=== PATIENT | female | born 1950 | race American Indian/Alaskan Native ===

== ENCOUNTER 2016-11-15 18:01 | Emergency (ER) | payer OTHER ==
[2016-11-15 18:16] VITALS: TEMP 98.3
[2016-11-15 19:00] VITALS: PULSE 72
[2016-11-15] MEDS ORDERED: Lidocaine 5% Patch TD STA (19:22)
[2016-11-15] MEDS ORDERED: Lidocaine 5% Patch TD ONE (19:29)
--- NOTE | 2016-11-15 19:40 | C.PDOC ---
History Of Present Illness 65 year old female who presents to the ER with a complaint of lower back pain radiating to the right leg. Patient reports she has pain with ambulation; she took aleve with minimum relief to pain. Reports history of similar back pain in the past. Denies heavy lifting, recent injury, weakness, numbness, or urinary symptoms. Time Seen by Provider: 11/15/16 19:16 Chief Complaint (Nursing): Back Pain History Per: Patient History/Exam Limitations: no limitations Onset/Duration Of Symptoms: Days Current Symptoms Are (Timing): Still Present Quality Of Discomfort: Unable To Describe Previous Symptoms: None Associated Symptoms: None Exacerbating Factor(s): Other (Walking) Recent travel outside of the [place]: No Past Medical History Reviewed: Historical Data, Nursing Documentation, Vital Signs Vital Signs: Last Vital Signs Temp 98.3 F 11/15/16 18:13 Pulse 72 11/15/16 20:41 Resp 20 11/15/16 21:35 BP 157/111 H 11/15/16 21:35 Pulse Ox 97 11/15/16 21:09 - Medical History PMH: HTN Surgical History: No Surg Hx Family History: States: Unknown Family Hx - Social History Hx Alcohol Use: No Hx Substance Use: No - Immunization History Hx Tetanus Toxoid Vaccination: Yes Hx Influenza Vaccination: Yes (10/2015) Hx Pneumococcal Vaccination: No Review Of Systems Constitutional: Negative for: Fever, Malaise ENT: Negative for: Ear Pain Cardiovascular: Negative for: Chest Pain, Palpitations Respiratory: Negative for: Cough, Shortness of Breath Gastrointestinal: Negative for: Vomiting, Abdominal Pain, Diarrhea Genitourinary: Negative for: Dysuria, Incontinence, Hematuria Musculoskeletal: Positive for: Back Pain, Leg Pain Neurological: Negative for: Weakness, Numbness, Headache, Dizziness Physical Exam - Physical Exam Appears: Non-toxic, No Acute Distress Skin: Normal Color, Warm, Dry Head: Atraumatic, Normacephalic Eye(s): bilateral: Normal Inspection, EOMI Oral Mucosa: Moist Neck: Normal ROM Chest: Symmetrical Cardiovascular: Rhythm Regular, No Murmur Respiratory: Normal Breath Sounds, No Wheezing Gastrointestinal/Abdominal: Soft, No Tenderness Back: No Vertebral Tenderness, No Decreased ROM, Paraspinal Tenderness (Lumbar) Extremity: Normal ROM (x4), No Tenderness, No Deformity, No Swelling Neurological/Psych: Oriented x3, Normal Speech Gait: Steady ED Course And Treatment O2 Sat by Pulse Oximetry: 97 (Room air) Pulse Ox Interpretation: Normal Medical Decision Making Medical Decision Making: Impression: low back pain Plan: * Toradol * lidoderm * Valium Progress: Patient found to be hypertensive, reports ran out of her meds few days ago. HCTZ PO was ordred. On re-evaluation patient reports pain has much improved. She is ambulatory without signs of discomfort. No numbness, no weakness, no incontinence. Patient is stable for discharge Disposition Counseled Patient/Family Regarding: Diagnosis, Need For Followup, Rx Given - Disposition Disposition: HOME/ ROUTINE Disposition Time: 21:07 Condition: IMPROVED Additional Instructions: Please take pain medications as needed for back pain Follow up with your primary doctor or clinic for further care and to address your hypertension We have provided refill of your medication, please take daily Prescriptions: Cyclobenzaprine [Cyclobenzaprine HCl] 10 mg PO TID #21 tab Hydrochlorothiazide [Microzide] 25 mg PO DAILY #30 cap Naproxen [Naprosyn] 1 tab PO BID PRN #25 tab PRN Reason: Pain Instructions: Chronic Hypertension (ED), Acute Low Back Pain (DC) Forms: [employer] (Wallisian), Work Excuse - POA Present On Arrival: None - Clinical Impression Clinical Impression: Low back strain, Medicine refill - Scribe Statement The provider has reviewed the documentation as recorded by the Scriblaisha Burns All medical record entries made by the Scribe were at my direction and personally dictated by me. I have reviewed the chart and agree that the record accurately reflects my personal performance of the history, physical exam, medical decision making, and the department course for this patient. I have also personally directed, reviewed, and agree with the discharge instructions and disposition.
[2016-11-15 21:09] VITALS: O2SAT 97
[2016-11-15 21:36] VITALS: BP 157/111; RESP 20
== END 2016-11-15 22:00 | disposition home or self-care (01) ==
LOC: C.ER 18:01
DX: S39.012A Strain of muscle, fascia and tendon of lower back, initial encounter (principal); X58.XXXA Exposure to other specified factors, initial encounter; I10 Essential (primary) hypertension; Z76.0 Encounter for issue of repeat prescription
CPT/HCPCS: 96372; 99284; J1885

== ENCOUNTER 2017-03-29 21:45 | Emergency (ER) | payer SELFPAY ==
[2017-03-29] MEDS ORDERED: Albuterol-Ipratrop 3 mg / 0.5 (3 ml) UD IH STA (23:00)
[2017-03-29] MEDS ORDERED: Albuterol-Ipratrop 3 mg / 0.5 (3 ml) UD ONE (23:43)
[2017-03-29 23:48] LABS: BASO % 0.5 % (0.0-2.0); EOS # 0.1 K/uL (0.0-0.7); EOS % 2.4 % (0.0-4.0); LYMPH # 0.8 K/uL (1.0-4.3); LYMPH % 13.5 % (20.0-40.0); MEAN CELL VOLUME 92.4 fL (81.0-99.0); MEAN CORPUSCULAR HGB CONC 33.5 g/dL (33.0-37.0); MEAN PLATELET VOLUME 10.1 fL (7.2-11.7); MONO # 0.5 K/uL (0.0-0.8); NEUT # 4.5 K/uL (1.8-7.0); NEUT % 75.6 % (50.0-75.0); RBC 3.87 Mil/uL (3.80-5.20); RED CELL DISTRIBUTION WIDTH 13.7 % (11.5-14.5); WHITE BLOOD COUNT 5.9 K/uL (4.8-10.8)
[2017-03-29 23:59] LABS: ALBUMIN 3.9 g/dL (3.5-5.0); CALCIUM 8.6 mg/dl (8.6-10.4); GFR AFRICAN-AMERICAN > 60; GFR NON-AFRICAN AMERICAN > 60
[2017-03-30 00:11] LABS: B-TYPE NATRIURETIC PEPTIDE 526 pg/mL (0-900)
[2017-03-30] MEDS ORDERED: Albuterol-Ipratrop 3 mg / 0.5 (3 ml) UD IH STA (00:13)
[2017-03-30 00:35] LABS: ALT/SGPT 39 U/L (9-52); AST/SGOT 35 U/L (14-36); BLOOD UREA NITROGEN 21 mg/dL (7-17)
--- NOTE | 2017-03-30 00:42 | C.PDOC ---
Time Seen by Provider: 03/29/17 22:51 Chief Complaint (Nursing): Cough, Cold, Congestion History Per: Patient, Family Onset/Duration Of Symptoms: Days (3) Current Symptoms Are (Timing): Still Present Associated Symptoms: Fever (subjective), Cough Severity: Moderate Additional History Per: Prior Records Past Medical History Reviewed: Historical Data, Nursing Documentation, Vital Signs Vital Signs: Last Vital Signs Temp 98.8 F 03/29/17 22:09 Pulse 60 03/29/17 22:09 Resp 20 03/29/17 22:09 BP 164/104 H 03/29/17 23:00 Pulse Ox 98 03/30/17 00:42 - Medical History PMH: HTN Family History: States: Unknown Family Hx - Social History Hx Tobacco Use: No Hx Alcohol Use: No Hx Substance Use: No - Immunization History Hx Tetanus Toxoid Vaccination: Yes Hx Influenza Vaccination: Yes (10/2015) Hx Pneumococcal Vaccination: No Review Of Systems Except As Marked, All Systems Reviewed And Found Negative. Constitutional: Positive for: Malaise Cardiovascular: Negative for: Chest Pain Respiratory: Positive for: Cough, Wheezing. Negative for: Shortness of Breath, Hemoptysis Gastrointestinal: Negative for: Vomiting, Abdominal Pain, Diarrhea Genitourinary: Negative for: Dysuria Musculoskeletal: Negative for: Neck Pain Skin: Negative for: Rash Neurological: Negative for: Weakness, Numbness Physical Exam - Physical Exam Appears: Non-toxic, No Acute Distress Skin: Normal Color, Warm, Dry, No Rash Head: Atraumatic, Normacephalic Eye(s): bilateral: PERRL, EOMI Neck: Normal ROM, Supple Cardiovascular: Rhythm Regular Respiratory: No Accessory Muscle Use, Wheezing Gastrointestinal/Abdominal: Soft, No Tenderness Back: No CVA Tenderness Extremity: Normal ROM Neurological/Psych: Oriented x3, Normal Motor, Normal Sensation ED Course And Treatment - Laboratory Results Result Diagrams: 03/29/17 23:44 03/29/17 23:44 Lab Interpretation: No Acute Changes O2 Sat by Pulse Oximetry: 98 Pulse Ox Interpretation: Normal Progress - Interventions Interventions:: Observation - Medications Administered Oral: Antihypertensive Inhaled nebulized: Anticholinergic, Beta-2 agonist - Patient Status Patient status: Partially improved Disposition - Disposition Disposition Time: 01:00 Condition: FAIR - Clinical Impression Clinical Impression: Uncontrolled hypertension, Acute wheezy bronchitis Physician Patient Turnover Patient Signed Over To: Nevaeh Sarmiento Handoff Comments: to reassess/dispo pt after meds
[2017-03-30] MEDS ORDERED: Albuterol-Ipratrop 3 mg / 0.5 (3 ml) UD ONE (00:50)
[2017-03-30] MEDS ORDERED: Enalaprilat 2.5 MG/2 ML IV ONE (00:54)
[2017-03-30] MEDS ORDERED: Enalaprilat 2.5 MG/2 ML ONE (01:19)
[2017-03-30 01:31] VITALS: RESP 19; O2SAT 96
[2017-03-30 02:14] VITALS: BP 160/94; PULSE 92; TEMP 98
--- NOTE | 2017-03-30 08:11 | RAD ---
HISTORY: Cough, wheezing COMPARISON: None TECHNIQUE: Chest PA and lateral FINDINGS: LUNGS: Mild to moderate pulmonary vascular congestion. PLEURA: No pleural effusion is identified. CARDIOVASCULAR: Heart size is enlarged. OSSEOUS STRUCTURES: Degenerative changes noted of the spine. VISUALIZED UPPER ABDOMEN: Unremarkable. OTHER FINDINGS: None. IMPRESSION: Cardiomegaly and mild to moderate pulmonary vascular congestion.
== END 2017-03-30 02:16 | disposition home or self-care (01) ==
LOC: C.ER 21:45
DX: I10 Essential (primary) hypertension (principal); J20.9 Acute bronchitis, unspecified
CPT/HCPCS: 71046; 80053; 83880; 84484; 85025; 87804; 96374; 96375; 99284; J2930

== ENCOUNTER 2018-06-10 23:35 | Emergency (ER) | payer SELFPAY ==
--- NOTE | 2018-06-11 01:03 | C.PDOC ---
History Of Present Illness 67 year old female presents to the ED c/o bilateral lower leg swelling for several months, that worsened over the last 2 weeks. Patient reports her right leg is worse than her left leg. Patient states having 20 pound weight loss in t he last two months. Patient reports she works in [employer] which requires her to be on her feet all day. Patient states her mother had history of breast cancer. Patient denies fever, chills, headache, visual changes, CP, SOB, palpitations, weakness, numbness, injury, fall, trauma. Time Seen by Provider: 06/10/18 23:47 Chief Complaint (Nursing): Lower Extremity Problem/Injury History Per: Patient History/Exam Limitations: no limitations Onset/Duration Of Symptoms: Days Current Symptoms Are (Timing): Still Present Severity: Severe Recent travel outside of the [place]: No Additional History Per: Patient - Ankle/Foot Description Of Injury: Other Past Medical History Reviewed: Historical Data, Nursing Documentation, Vital Signs Vital Signs: Last Vital Signs Temp 97.9 F 06/10/18 23:40 Pulse 77 06/10/18 23:40 Resp 18 06/10/18 23:40 BP 201/135 H 06/10/18 23:40 Pulse Ox 96 06/10/18 23:40 - Medical History PMH: HTN Denies: Chronic Kidney Disease Surgical History: No Surg Hx Other Family History: Mother breast cancer - Social History Hx Tobacco Use: No Hx Alcohol Use: No Hx Substance Use: No - Immunization History Hx Tetanus Toxoid Vaccination: Yes Hx Influenza Vaccination: Yes (2018) Hx Pneumococcal Vaccination: No Review Of Systems Constitutional: Negative for: Fever, Chills Cardiovascular: Negative for: Chest Pain Respiratory: Negative for: Shortness of Breath Gastrointestinal: Negative for: Nausea, Vomiting, Abdominal Pain Musculoskeletal: Positive for: Leg Pain Skin: Negative for: Rash Neurological: Negative for: Weakness, Numbness, Headache, Dizziness Physical Exam - Physical Exam Appears: Non-toxic, No Acute Distress Skin: Normal Color, Warm, Dry Head: Atraumatic, Normacephalic Eye(s): bilateral: Normal Inspection Neck: Normal ROM, Supple Chest: Symmetrical Cardiovascular: Rhythm Regular Respiratory: Normal Breath Sounds, No Rales, No Rhonchi, No Wheezing Gastrointestinal/Abdominal: Soft, No Tenderness, No Guarding, No Rebound Extremity: Normal ROM, No Tenderness, Pedal Edema (2+ pitting edema bilaterally, right > left), No Calf Tenderness, Capillary Refill (< 2 seconds) Pulses: Left Dorsalis Pedis: Normal, Right Dorsalis Pedis: Normal Neurological/Psych: Oriented x3, Normal Speech, Normal Cognition Gait: Steady ED Course And Treatment - Laboratory Results Result Diagrams: 06/11/18 00:55 06/11/18 00:55 O2 Sat by Pulse Oximetry: 96 (ON RA) Pulse Ox Interpretation: Normal Progress Note: Plan: - Labs. - CXR. - Lasix 40 mg IVP. - UA Disposition Counseled Patient/Family Regarding: Studies Performed, Diagnosis, Need For Followup, Rx Given - Disposition Referrals: [facility] [Outside] Disposition Time: 03:05 Condition: STABLE Additional Instructions: RETURN TO THE ER BETWEEN 9AM AND 2PM FOR VENOUS DOPPLER OF YOUR LEGS (TO EVAL UATE FOR POSSIBLE BLOOD CLOT) START USING NORVASC DAILY IN ADDITION TO HYDROCHLOROTHIAZIDE RETURN TO ER IF YOU HAVE ANY CONCERNING SYMPTOMS Prescriptions: amLODIPine [Norvasc] 5 mg PO DAILY #30 tab Compression Socks, Medium [Futuro Restoring] 1 each MC DAILY #1 each Instructions: Dependent Edema (DC) Forms: [employer] (Bahamian) Print Language: BENINESE - Clinical Impression Clinical Impression: Leg edema - Scribe Statement The provider has reviewed the documentation as recorded by the Scribe Clint Pack All medical record entries made by the Scribe were at my direction and personally dictated by me. I have reviewed the chart and agree that the record accurately reflects my personal performance of the history, physical exam, medical decision making, and the department course for this patient. I have also personally directed, reviewed, and agree with the discharge instructions and disposition.
[2018-06-11 01:04] LABS: BASO % 0.7 % (0.0-2.0); EOS # 0.2 K/uL (0.0-0.7); EOS % 2.6 % (0.0-4.0); HEMOGLOBIN 11.2 g/dL (11.0-16.0); LYMPH # 0.9 K/uL (1.0-4.3); LYMPH % 14.8 % (20.0-40.0); MEAN CELL VOLUME 94.1 fL (81.0-99.0); MEAN CORPUSCULAR HEMOGLOBIN 30.7 pg (27.0-31.0); MEAN CORPUSCULAR HGB CONC 32.6 g/dL (33.0-37.0); MONO # 0.4 K/uL (0.0-0.8); MONO % 6.7 % (0.0-10.0); NEUT # 4.5 K/uL (1.8-7.0); NEUT % 75.2 % (50.0-75.0); NRBC % 0.1 % (0.0-2.0); RBC 3.65 Mil/uL (3.80-5.20); RED CELL DISTRIBUTION WIDTH 13.5 % (11.5-14.5)
[2018-06-11 01:18] LABS: ALB/GLOB RATIO 1.4 (1.0-2.1); CALCIUM 8.3 mg/dl (8.6-10.4)
[2018-06-11 01:30] LABS: TROPONIN I 0.012 ng/mL (0.00-0.120)
[2018-06-11 02:00] LABS: SQUAMOUS EPITHIAL < 1 /hpf (0-5); URINE BILIRUBIN NEGATIVE (NEGATIVE); URINE BLOOD NEGATIVE (NEGATIVE); URINE CLARITY Clear (Clear); URINE COLOR Colorless (YELLOW); URINE GLUCOSE (UA) NORMAL (Normal); URINE LEUKOCYTE ESTERASE NEG Leu/uL (Negative); URINE PROTEIN NEGATIVE (NEGATIVE); URINE UROBILINOGEN NORMAL mg/dL (0.2-1.0)
[2018-06-11 02:24] VITALS: TEMP 98.1
[2018-06-11 03:28] VITALS: BP 165/84; PULSE 82; RESP 15; O2SAT 97
--- NOTE | 2018-06-11 15:47 | RAD ---
Date of service: 06/11/2018 PROCEDURE: CHEST RADIOGRAPH, 1 VIEW HISTORY: weight loss COMPARISON: 03/29/2017 FINDINGS: LUNGS: Clear. PLEURA: No pneumothorax or pleural fluid seen. CARDIOVASCULAR: No aortic atherosclerotic calcification present. Normal. OSSEOUS STRUCTURES: No significant abnormalities. VISUALIZED UPPER ABDOMEN: Normal. OTHER FINDINGS: None. IMPRESSION: No active disease.
== END 2018-06-11 03:29 | disposition home or self-care (01) ==
LOC: C.ER 23:35
DX: R60.0 Localized edema (principal); I10 Essential (primary) hypertension; Z80.3 Family history of malignant neoplasm of breast
CPT/HCPCS: 71045; 80053; 81001; 83690; 83880; 84484; 85025; 96374; 99283; J1940

== ENCOUNTER 2018-06-12 13:40 | Emergency (ER) | payer SELFPAY ==
[2018-06-12 13:59] VITALS: BP 184/111; PULSE 86; RESP 16; TEMP 97.8; O2SAT 96
--- NOTE | 2018-06-12 15:01 | C.PDOC ---
History Of Present Illness 67 y/o female presents to the ER complaining of dependent edema in legs. Pt was evaluated for same complaint in ER yesterday. Pt had workup but she was not able to have US for bilateral lower extremities. Pt was instructed to return to the ER for US. 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 She had weight loss 10 lbs in the past few months. She did not have colonoscopy and recent mammogram. Denies having CP,SOB,weakness, and numbness in legs. Of note, patient's mother had history of breast cancer. Time Seen by Provider: 06/12/18 14:03 Chief Complaint (Nursing): Lower Extremity Problem/Injury History Per: Patient History/Exam Limitations: no limitations Onset/Duration Of Symptoms: Days Current Symptoms Are (Timing): Still Present Severity: Moderate Past Medical History Reviewed: Historical Data, Nursing Documentation, Vital Signs Vital Signs: Last Vital Signs Temp 97.8 F 06/12/18 13:52 Pulse 86 06/12/18 13:52 Resp 16 06/12/18 13:52 BP 184/111 H 06/12/18 13:52 Pulse Ox 96 06/12/18 13:52 - Medical History PMH: HTN Denies: Chronic Kidney Disease Other Surgeries: Hx of surgeries Family History: States: No Known Family Hx - Social History Hx Tobacco Use: No Hx Alcohol Use: No Hx Substance Use: No - Immunization History Hx Tetanus Toxoid Vaccination: Yes Hx Influenza Vaccination: Yes (2018) Hx Pneumococcal Vaccination: No Review Of Systems Except As Marked, All Systems Reviewed And Found Negative. Constitutional: Positive for: Weight loss (10 lb weight loss in the past 2 months) Musculoskeletal: Positive for: Other (bilateral lower extremity edema ) Physical Exam - Physical Exam Appears: No Acute Distress, Other (obese,black female, bitemporal wasting) Skin: Normal Color, Warm, Dry Head: Atraumatic, Normacephalic Eye(s): bilateral: Normal Inspection Nose: Normal Oral Mucosa: Moist Neck: Supple Chest: Symmetrical Cardiovascular: Rhythm Regular Respiratory: Normal Breath Sounds, No Rales, No Rhonchi, No Wheezing Extremity: Normal ROM, Other (heavy set lower extremities, no dependent edema) Neurological/Psych: Oriented x3, Normal Speech ED Course And Treatment O2 Sat by Pulse Oximetry: 96 (RA) Pulse Ox Interpretation: Normal - Other Rad US b/l legs X-Ray: Interpreted by Me, Read By Radiologist (no DVT) Reevaluation Time: 15:01 Reassessment Condition: Unchanged Medical Decision Making Medical Decision Making: 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 bitemporal wasting, ? weight loss 10# in past few months lost to f/u for Mammo with + FH (Mom had Breast CA) No prior Colonoscopy Boarderline anemia Refer back to Clinic for referrals for Mammo and Colonoscopy Disposition Doctor Will See Patient In The: Office Counseled Patient/Family Regarding: Studies Performed, Diagnosis - Disposition Referrals: [facility] [Outside] [facility] [Outside] [facility] [Outside] Disposition: HOME/ ROUTINE Disposition Time: 15:03 Condition: GOOD Additional Instructions: Ultrasound exam NEGATIVE for DVT (Deep Vein Thrombosis) Continue TEDS Stockings for work days ALWAYS ABOVE THE KNEES Weight loss FH of Breast CA (Mother) [facility] for routine Mammo and Colonoscopy Instructions: Dependent Edema (DC) Forms: [employer] (Tristanian) - Clinical Impression Clinical Impression: Leg edema - Scribe Statement The provider has reviewed the documentation as recorded by the Scribe Bhavik Caro Provider Attestation: All medical record entries made by the Scribe were at my direction and personally dictated by me. I have reviewed the chart and agree that the record accurately reflects my personal performance of the history, physical exam, medical decision making, and the department course for this patient. I have also personally directed, reviewed, and agree with the discharge instructions and disposition.
--- NOTE | 2018-06-13 11:10 | VASCLAB ---
Date of service: 06/12/2018 PROCEDURE: Lower Extremity Venous Duplex Exam. HISTORY: dependent edema b/l PRIORS: None. TECHNIQUE: Bilateral common femoral, femoral, popliteal and posterior tibial, peroneal and great saphenous veins were evaluated. Flow was assessed with color Doppler, compressibility, assessment of phasic flow and augmentation response. Report prepared by MADHAV Tay FINDINGS: RIGHT: 1. Common Femoral Vein: 1.1. Compressibility - Fully compressible: Thrombus - None : Flow - Phasic: Augmentation -Normal: Reflux - None. 2. Femoral Vein: 2.1. Compressibility - Fully compressible: Thrombus - None : Flow - Phasic: Augmentation -Normal: Reflux - None. 3. Popliteal Vein: 3.1. Compressibility - Fully compressible: Thrombus - None : Flow - Phasic: Augmentation -Normal: Reflux - None. 4. Posterior Tibial Vein: 4.1. Compressibility - Fully compressible: Thrombus - None: Flow - Phasic: Augmentation -Normal: Reflux - None. 5. Peroneal Vein: 5.1. Compressibility - Fully compressible: Thrombus - None: Flow - Phasic: Augmentation -Normal: Reflux - None. 6. Great Saphenous Vein: 6.1. Compressibility - Fully compressible: Thrombus - None: Flow - Phasic: Augmentation - Normal: Reflux - None. LEFT: 1. Common Femoral Vein: 1.1. Compressibility - Fully compressible: Thrombus - None: Flow - Phasic: Augmentation -Normal: Reflux - None. 2. Femoral Vein: 2.1. Compressibility - Fully compressible: Thrombus - None: Flow - Phasic: Augmentation -Normal: Reflux - None. 3. Popliteal Vein: 3.1. Compressibility - Fully compressible: Thrombus - None : Flow - Phasic: Augmentation -Normal: Reflux - None. 4. Posterior Tibial Vein: 4.1. Compressibility - Fully compressible: Thrombus - None: Flow - Phasic: Augmentation -Normal: Reflux - None. 5. Peroneal Vein: 5.1. Compressibility - Fully compressible: Thrombus - None: Flow - Phasic: Augmentation -Normal: Reflux - None. 6. Great Saphenous Vein: 6.1. Compressibility - Fully compressible: Thrombus - None: Flow - Phasic: Augmentation - Normal: Reflux - None. OTHER FINDINGS: None significant. IMPRESSION: Right: No evidence of deep or superficial vein thrombosis of the right lower extremity. Normal valve function noted of the right side. Left: No evidence of deep or superficial vein thrombosis of the left lower extremity. Normal valve function noted of the left side.
== END 2018-06-12 15:17 | disposition home or self-care (01) ==
LOC: C.ER 13:40
DX: R60.0 Localized edema (principal); I10 Essential (primary) hypertension; Z80.3 Family history of malignant neoplasm of breast

== ENCOUNTER 2018-06-22 15:41 | Outpatient (CLI) | payer OTHER | END 2018-06-22 15:42 | disposition home or self-care (01) | LOC: C.USIC 15:41 ==

== ENCOUNTER 2018-06-26 15:09 | Emergency (ER) | payer OTHER ==
[2018-06-26 15:53] VITALS: BP 189/95; PULSE 56; RESP 18; TEMP 98.9; O2SAT 100
--- NOTE | 2018-06-26 16:13 | C.PDOC ---
History Of Present Illness 67 y/o female presents to the ER complaining of chronic right knee pain which has been present for the past 3 months. 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 Patient reports that she has been going to the clinic and she had bloodwork,X-Rays and an US. She notes that she has follow up appointment in 3 days. She took Tylenol OTC without relief. However, she is requesting work note and pain medications.Denies having weakness and numbness. Time Seen by Provider: 06/26/18 16:05 Chief Complaint (Nursing): Lower Extremity Problem/Injury History Per: Patient History/Exam Limitations: no limitations Onset/Duration Of Symptoms: Days Current Symptoms Are (Timing): Still Present Severity: Moderate Past Medical History Reviewed: Historical Data, Nursing Documentation, Vital Signs Vital Signs: Last Vital Signs Temp 98.9 F 06/26/18 15:35 Pulse 56 L 06/26/18 15:35 Resp 18 06/26/18 15:35 BP 189/95 H 06/26/18 15:35 Pulse Ox 100 06/26/18 15:35 Primary Care Provider: Clinic,Med Surg - Medical History PMH: HTN Denies: Chronic Kidney Disease Other Surgeries: Hx of surgeries Family History: States: No Known Family Hx - Social History Hx Tobacco Use: No Hx Alcohol Use: No Hx Substance Use: No - Immunization History Hx Tetanus Toxoid Vaccination: Yes Hx Influenza Vaccination: Yes (2018) Hx Pneumococcal Vaccination: No Review Of Systems Except As Marked, All Systems Reviewed And Found Negative. Musculoskeletal: Positive for: Other (right knee pain) Neurological: Negative for: Weakness, Numbness Physical Exam - Physical Exam Appears: Non-toxic, No Acute Distress Skin: Normal Color, Warm, Dry, Other (no erythema and no warmth to right knee) Head: Atraumatic, Normacephalic Eye(s): bilateral: Normal Inspection Cardiovascular: Rhythm Regular Respiratory: Normal Breath Sounds, No Rales, No Rhonchi, No Wheezing Extremity: Normal ROM (full ROM of right knee with some pain), Tenderness (mild tenderness to right lateral knee), Swelling (swelling to right lateral knee), Other (Remainder of the RLE is nontender and has FROM.) Pulses: Left Dorsalis Pedis: Normal, Right Dorsalis Pedis: Normal Neurological/Psych: Oriented x3, Normal Speech, Normal Motor, Normal Sensation ED Course And Treatment O2 Sat by Pulse Oximetry: 100 (RA) Pulse Ox Interpretation: Normal Medical Decision Making Medical Decision Making: Patient with chronic right knee pain. Comes to ED with request specifically for pain medication and work note. States she has been previously evaluated for her symptoms with the clinic and has a scheduled follow-up appointment this coming week. 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 Patient refuses any other evaluation in the ED or testing. Disposition Counseled Patient/Family Regarding: Need For Followup, Rx Given - Disposition Referrals: [facility] [Outside] Disposition: HOME/ ROUTINE Disposition Time: 16:14 Condition: GOOD Additional Instructions: Follow-up with the clinic and orthopedist as previously scheduled. Ice and elevate your leg. Stay off the leg. Prescriptions: Acetaminophen with Codeine [Tylenol with Codeine No. 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 - Scribe Statement The provider has reviewed the documentation as recorded by the Osvaldo Caro Provider Attestation All medical record entries made by the Osvaldo were at my direction and personally dictated by me. I have reviewed the chart and agree that the record accurately reflects my personal performance of the history, physical exam, medical decision making, and the department course for this patient. I have also personally directed, reviewed, and agree with the discharge instructions and disposition.
== END 2018-06-26 16:32 | disposition home or self-care (01) ==
LOC: C.ER 15:09
DX: M25.561 Pain in right knee (principal); M25.461 Effusion, right knee; I10 Essential (primary) hypertension

== ENCOUNTER 2018-06-29 10:09 | Outpatient (CLI) | payer OTHER | END 2018-06-29 10:42 | disposition still patient (30) | LOC: C.RADH 10:09 | DX: M25.561 Pain in right knee (principal) ==

== ENCOUNTER 2018-06-29 10:43 | Emergency (ER) | payer OTHER ==
--- NOTE | 2018-06-29 11:10 | C.PDOC ---
History Of Present Illness Patient is a 67 year old female, with a PMHx of HTN, who presents to the ED for evaluation of right knee swelling and pain that has been present for the past month. She reports that she has had bilateral knee swelling and pain, but her right knee has been much worse. She states that it hurts while walking and when going to sleep she has difficulty getting up because her leg is stiff. She reports taking Tylenol for her pain and last took one yesterday. She denies any other symptoms. Time Seen by Provider: 06/29/18 10:56 Chief Complaint (Nursing): Lower Extremity Problem/Injury History Per: Patient, Family History/Exam Limitations: no limitations Onset/Duration Of Symptoms: Days (one month ) Current Symptoms Are (Timing): Still Present Recent travel outside of the [place]: No Additional History Per: Patient Past Medical History Reviewed: Historical Data, Nursing Documentation, Vital Signs - Medical History PMH: HTN Denies: Chronic Kidney Disease Surgical History: No Surg Hx Family History: States: Unknown Family Hx - Social History Hx Tobacco Use: No Hx Alcohol Use: No Hx Substance Use: No - Immunization History Hx Tetanus Toxoid Vaccination: Yes Hx Influenza Vaccination: Yes (2018) Hx Pneumococcal Vaccination: No Review Of Systems Musculoskeletal: Positive for: Leg Pain (bilateral knee pain, right worse than left) Physical Exam - Physical Exam Appears: Non-toxic, Other (appears to be in siginificant pain ) Skin: Warm, Dry Head: Atraumatic, Normacephalic Extremity: Tenderness (right knee tenderness and warm to touch), Swelling (bilateral knee swelling ) Neurological/Psych: Oriented x3 Gait: With Assistance (difficulty walking) Medical Decision Making Medical Decision Making: Plan: Tylenol 975mg PO Motrin 600mg PO Maalox 30ml PO Patient's Xray done by the clinic not yet read by radiology. Read by me. Shows bony spicules, osteopenia, and arthritic changes to right knee. Disposition - Disposition Referrals: [facility] [Outside] Disposition: HOME/ ROUTINE Disposition Time: 12:28 Condition: IMPROVED Prescriptions: Acetaminophen [Tylenol Extra Strength] 1,000 mg PO TID #9 tablet Aluminum Hydroxide/Magnesium H [Maalox 30 ml] 30 ml PO TID #1 bottle Ibuprofen [Motrin] 600 mg PO TID #15 tab Instructions: Osteoarthritis Forms: [employer] (N[place]ian), General Discharge Instructions - POA Present On Arrival: None - Clinical Impression Clinical Impression: Degenerative joint disease of right knee - Scribe Statement The provider has reviewed the documentation as recorded by the Osvaldo Irving All medical record entries made by the Maria Guadalupeiblaisha were at my direction and personally dictated by me. I have reviewed the chart and agree that the record accurately reflects my personal performance of the history, physical exam, medical decision making, and the department course for this patient. I have also personally directed, reviewed, and agree with the discharge instructions and disposition.
[2018-06-29] MEDS ORDERED: Aluminum Hydroxide/Magnesium Hydroxide Susp (30 mL) PO STA (11:13)
[2018-06-29] MEDS ORDERED: Aluminum Hydroxide/Magnesium Hydroxide Susp (30 mL) ONE (11:17)
[2018-06-29 12:08] VITALS: BP 136/78; PULSE 70; RESP 18; TEMP 98.5; O2SAT 97
== END 2018-06-29 12:38 | disposition home or self-care (01) ==
LOC: C.ER 10:43
DX: M17.11 Unilateral primary osteoarthritis, right knee (principal)